=== PATIENT | male | born 1990 ===

== ENCOUNTER 2021-05-28 17:27 | Emergency (ER) | payer MEDICAID ==
--- NOTE | 2021-05-28 18:55 | XRay Report ---
CHEST 2 VIEWS INDICATION / CLINICAL INFORMATION: cough, sob. COMPARISON: None available. FINDINGS: SUPPORT DEVICES: None. HEART / MEDIASTINUM: No significant abnormality. LUNGS / PLEURA: No significant pulmonary or pleural abnormality. No pneumothorax. ADDITIONAL FINDINGS: No significant additional findings. IMPRESSION: 1. No acute findings. Signer Name: Rafi Leblanc MD Signed: 05/28/2021 6:51 PM Workstation Name: [id number]
--- NOTE | 2021-05-28 19:04 | Emergency Department Report ---
- General Chief Complaint: Sore Throat Stated Complaint: COUGH WITH SORE THROAT Time Seen by Provider: 05/28/21 18:01 Source: patient Mode of arrival: Ambulatory Limitations: No Limitations - History of Present Illness Initial Comments: Patient is a 31-year-old male presents emergency room complaints of URI symptoms that began yesterday. He has associated headache, sore throat, cough, chills, generalized body aches, subjective fever, shortness of breath. He denies any vomiting, diarrhea, chest pain, abdominal pain. Patient denies any recent travel or known sick contacts. He has not been vaccinated for COVID-19. No past medical history. No allergies to medications - Related Data Previous Rx's Medication Instructions Recorded Last Taken Type Acetaminophen [Tylenol] 650 mg PO Q8HR PRN #20 capsule 05/28/21 Unknown Rx Benzonatate [Tessalon Perles] 100 mg PO Q8HR PRN #10 capsule 05/28/21 Unknown Rx guaiFENesin ER [Mucinex ER] 600 mg PO Q12H #14 tablet.er 05/28/21 Unknown Rx Allergies Allergy/AdvReac Type Severity Reaction Status Date / Time No Known Allergies Allergy Unverified 05/28/21 17:41 ED Review of Systems ROS: Stated complaint: COUGH WITH SORE THROAT Other details as noted in HPI Comment: All other systems reviewed and negative ED Past Medical Hx - Medications Home Medications: Home Medications Medication Instructions Recorded Confirmed Last Taken Type Acetaminophen [Tylenol] 650 mg PO Q8HR PRN #20 capsule 05/28/21 Unknown Rx Benzonatate [Tessalon Perles] 100 mg PO Q8HR PRN #10 capsule 05/28/21 Unknown Rx guaiFENesin ER [Mucinex ER] 600 mg PO Q12H #14 tablet.er 05/28/21 Unknown Rx ED Physical Exam - General Limitations: No Limitations General appearance: alert, in no apparent distress - Head Head exam: Present: atraumatic, normocephalic - Eye Eye exam: Present: normal appearance - ENT ENT exam: Present: normal orophraynx, mucous membranes moist, TM's normal bilaterally, normal external ear exam - Respiratory Respiratory exam: Present: normal lung sounds bilaterally. Absent: respiratory distress, wheezes, rales, rhonchi, stridor, chest wall tenderness, accessory muscle use, decreased breath sounds, prolonged expiratory - Cardiovascular Cardiovascular Exam: Present: regular rate, normal rhythm, normal heart sounds. Absent: systolic murmur, diastolic murmur, rubs, gallop - Neurological Exam Neurological exam: Present: alert, oriented X3 - Psychiatric Psychiatric exam: Present: normal affect, normal mood - Skin Skin exam: Present: warm, dry, intact ED Course Vital Signs 05/28/21 05/28/21 17:38 19:26 Temperature 98.4 F 98.0 F Pulse Rate 75 81 Respiratory 20 16 Rate Blood Pressure 128/72 121/75 [Right] O2 Sat by Pulse 97 100 Oximetry ED Medical Decision Making - Radiology Data Radiology results: report reviewed Ordering Physician: SANJUANA GORE Date of Service: 05/28/21 Procedure(s): XR chest routine 2V Accession Number(s): [id number] cc: SANJUANA GORE Fluoro Time In Minutes: CHEST 2 VIEWS INDICATION / CLINICAL INFORMATION: cough, sob. COMPARISON: None available. FINDINGS: SUPPORT DEVICES: None. HEART / MEDIASTINUM: No significant abnormality. LUNGS / PLEURA: No significant pulmonary or pleural abnormality. No pneumothorax. ADDITIONAL FINDINGS: No significant additional findings. IMPRESSION: 1. No acute findings. Signer Name: Rafi Leblanc MD Signed: 05/28/2021 6:51 PM Workstation Name: [id number] Transcribed By: ANNABEL Dictated By: Rafi Leblanc MD Electronically Authenticated By: Rafi Leblanc MD Signed Date/Time: 05/28/211850 DD/ 50 TD/TT: - Medical Decision Making Patient is a 31-year-old male presents emergency room complaints of URI symptoms that began yesterday. He has associated headache, sore throat, cough, chills, generalized body aches, subjective fever, shortness of breath. He denies any vomiting, diarrhea, chest pain, abdominal pain. Patient denies any recent travel or known sick contacts. He has not been vaccinated for COVID-19. No past medical history. No allergies to medications. Vitals are normal, no hypoxia, no fever, no tachycardia. Breath sounds are clear bilaterally, no wheezing, no rales, no rhonchi, normal oropharynx, normal TMs and canals. Influenza is negative. Chest x-ray: 1. No acute findings. Symptoms likely related to URI. Advised patient Please take medication as prescribed. Increase your fluid intake. Follow-up with a primary care doctor. Return to emergency room for any new or worsening symptoms. Recommend outpatient COVID-19 testing if positive will need to have quarantine for 10 days from onset of symptoms. Critical care attestation.: If time is entered above; I have spent that time in minutes in the direct care of this critically ill patient, excluding procedure time. ED Disposition Clinical Impression: Upper respiratory infection Qualifiers: URI type: unspecified URI Qualified Code(s): J06.9 - Acute upper respiratory infection, unspecified Disposition: HOME / SELF CARE / HOMELESS Is pt being admited?: No Does the pt Need Aspirin: No Condition: Stable Instructions: Viral Respiratory Infection Additional Instructions: Please take medication as prescribed. Increase your fluid intake. Follow-up with a primary care doctor. Return to emergency room for any new or worsening symptoms. Recommend outpatient COVID-19 testing if positive will need to have quarantine for 10 days from onset of symptoms. Prescriptions: guaiFENesin ER [Mucinex ER] 600 mg PO Q12H #14 tablet.er Benzonatate [Tessalon Perles] 100 mg PO Q8HR PRN #10 capsule PRN Reason: cough Acetaminophen [Tylenol] 650 mg PO Q8HR PRN #20 capsule PRN Reason: pain/headache/fever Referrals: PRIMARY CARE, [Primary Care Provider] - 3-5 Days Forms: Work/School Release Form(ED) Time of Disposition: 19:13 Print Language: [place]
[2021-05-28 19:27] VITALS: BP 121/75
== END 2021-05-28 19:25 | disposition home or self-care (01) ==
LOC: ED 17:27
DX: J06.9 Acute upper respiratory infection, unspecified (principal)
CPT/HCPCS: 71046; 87400; 99283